=== PATIENT | female | born 1955 | race Caucasian/White ===

== ENCOUNTER 2017-07-25 10:20 | Emergency (ER) | payer SELFPAY ==
[~2017-07-25] VITALS: Ht 157.5 cm; Wt 52.2 kg
[2017-07-25 10:26] VITALS: BP 139/84
[2017-07-25 12:58] VITALS: BP 123/77
== END 2017-07-25 12:58 | disposition home or self-care (01) ==
LOC: MED 10:20
DX: S20.20XA Contusion of thorax, unspecified, initial encounter (principal); T14.8XXA Other injury of unspecified body region, initial encounter; V89.2XXA Person injured in unspecified motor-vehicle accident, traffic, initial encounter; Y93.89 Activity, other specified; Y92.89 Other specified places as the place of occurrence of the external cause; Y99.8 Other external cause status
CPT/HCPCS: 71100; 73502; 74018; 81002; 81025; 99284